=== PATIENT | female | born 1955 | race Caucasian/White ===

== ENCOUNTER → 2017-03-13 | Outpatient (CLI) | payer MEDICARE, OTHER | LOC: KOH-I 02-02 15:15 | DX: M51.36 Other intervertebral disc degeneration, lumbar region (principal); M51.9 Unspecified thoracic, thoracolumbar and lumbosacral intervertebral disc disorder; I10 Essential (primary) hypertension; E07.9 Disorder of thyroid, unspecified; M48.06 Spinal stenosis, lumbar region | CPT/HCPCS: 72148 ==

== ENCOUNTER 2020-11-18 13:10 | Emergency (ER) | payer MEDICARE, OTHER ==
[2020-11-18 14:13] LABS: HEMOGLOBIN 15.8 gm/dl (12.3-15.3); RED BLOOD COUNT 5.22 M/UL (4.00-5.10); WHITE BLOOD COUNT 12.8 K/UL (4.5-11.0)
[2020-11-18 14:38] LABS: BUN/CREATININE RATIO 23 (0-10)
[2020-11-19] MEDS ORDERED: CYCLOBENZAPRINE10 MG PO (19:50)
[2020-11-19] MEDS ORDERED: HYDROCODON-ACE1 EAC4 PO (19:50)
[2020-11-19] MEDS ORDERED: CONSTULOSE10 GM/15 M PO (19:50)
== END 2020-11-18 15:44 | disposition home or self-care (01) ==
LOC: ER1 13:10
PROVIDERS: Physician Assistant
DX: M54.5 Low back pain (principal); E86.0 Dehydration; R10.30 Lower abdominal pain, unspecified; F17.210 Nicotine dependence, cigarettes, uncomplicated
CPT/HCPCS: 80053; 81001; 85025; 99284

== ENCOUNTER 2020-11-19 14:20 | Emergency (ER) | payer MEDICARE, OTHER ==
[2020-11-19 17:11] LABS: RED BLOOD COUNT 4.95 M/UL (4.00-5.10); WHITE BLOOD COUNT 13.1 K/UL (4.5-11.0)
[2020-11-19 17:26] LABS: BUN/CREATININE RATIO 28 (0-10)
[2020-11-19] MEDS ORDERED: HYDROCODON-ACE1 EAC4 PO (19:50)
[2020-11-19] MEDS ORDERED: CYCLOBENZAPRINE10 MG PO (19:50)
[2020-11-19] MEDS ORDERED: CONSTULOSE10 GM/15 M PO (19:50)
== END 2020-11-19 19:55 | disposition home or self-care (01) ==
LOC: ER1 14:20
PROVIDERS: Preventive Medicine Occupational Medicine
DX: R10.30 Lower abdominal pain, unspecified (principal); M54.5 Low back pain; E86.0 Dehydration; F17.210 Nicotine dependence, cigarettes, uncomplicated
CPT/HCPCS: 0240U; 36415; 80053; 80307; 83605; 83690; 85025; 85652; 86140; 99285; J1170; J2405; Q9967

== ENCOUNTER → 2021-03-29 | Outpatient (CLI) | payer MEDICARE, OTHER ==
[~2021-03-29] MED LIST: CONSTULOSE10 GM/15 M PO; CYCLOBENZAPRINE10 MG PO; HYDROCODON-ACE1 EAC4 PO
[2021-03-29 14:15] LABS: HEMOGLOBIN 13.4 gm/dl (12.3-15.3); RED BLOOD COUNT 4.89 M/UL (4.00-5.10); WHITE BLOOD COUNT 5.6 K/UL (4.5-11.0)
[2021-03-29 14:34] LABS: BUN/CREATININE RATIO 22 (0-10)
== END ==
LOC: LBRF 13:40
PROVIDERS: Family Medicine
DX: Z51.81 Encounter for therapeutic drug level monitoring (principal); R79.89 Other specified abnormal findings of blood chemistry; R68.89 Other general symptoms and signs; R70.0 Elevated erythrocyte sedimentation rate; R79.82 Elevated C-reactive protein (CRP)
CPT/HCPCS: 80053; 80202; 85025; 85652; 86140

== ENCOUNTER → 2021-04-25 | Outpatient (CLI) | payer MEDICARE, OTHER | LOC: KOH-I 09:42 | DX: M46.26 Osteomyelitis of vertebra, lumbar region (principal); M47.816 Spondylosis without myelopathy or radiculopathy, lumbar region; R93.7 Abnormal findings on diagnostic imaging of other parts of musculoskeletal system | CPT/HCPCS: 72148; 80053; 82550; 85025; 85652; 86140 ==

== ENCOUNTER → 2021-09-06 | Outpatient (CLI) | payer MEDICARE, OTHER ==
[2021-09-06 14:38] LABS: HEMOGLOBIN 15.7 gm/dl (12.3-15.3); RED BLOOD COUNT 5.26 M/UL (4.00-5.10); WHITE BLOOD COUNT 7.3 K/UL (4.5-11.0)
== END ==
LOC: LBRF 14:15
PROVIDERS: Nurse Practitioner Acute Care
DX: A41.02 Sepsis due to Methicillin resistant Staphylococcus aureus (principal); Z79.2 Long term (current) use of antibiotics
CPT/HCPCS: 80053; 85025; 86140